=== PATIENT | female | born 1990 | race Caucasian/White ===

== ENCOUNTER 2016-06-15 20:01 | Emergency (ER) | payer MEDICAID, OTHER ==
[2016-06-15 20:16] VITALS: BP 112/71
[2016-06-15] MEDS ORDERED: Acetaminophen TAB* 325 MG PO ONE (20:35)
--- NOTE | 2016-06-15 21:11 | RAD ---
Indication: LEFT foot pain; unable to bear weight or move toes well following injury playing basketball. Lateral ankle and foot swelling. Comparison: July 08, 2003 ankle radiographs. Technique: AP, lateral, and oblique views LEFT foot. Report: Negative for fracture or malalignment. Mild forefoot plantar soft tissue swelling. IMPRESSION: Negative for LEFT foot fracture or malalignment. If there is clinical concern for injury at level of the ankle dedicated radiographs of the ankle would be suggested.
--- NOTE | 2016-06-15 21:27 | ED ---
Lower Extremity - HPI Summary HPI Summary: 26 F presents with left foot pain since today. She was walking when she rolled her foot. She denies any ankle pain. She has not hurt this foot before. She denies any numbness or tingling. She states she is unable to move her toes due to the pain. She has not taken anything for the pain yet. She states she is having difficulty ambulating due to pain - History of Current Complaint Chief Complaint: EDExtremityLower Stated Complaint: LT FOOT PAIN Time Seen by Provider: 06/15/16 20:21 Hx Last Menstrual Period: 2 WKS AGO Pain Intensity: 6 - Allergies/Home Medications Allergies/Adverse Reactions: Allergies Allergy/AdvReac Type Severity Reaction Status Date / Time No Known Allergies Allergy Verified 05/28/16 13:28 PMH/Surg Hx/FS Hx/Imm Hx Endocrine/Hematology History: Denies: Hx Anticoagulant Therapy History: Reports: Other Problems/Disorders - Surgical History Surgery Procedure, Year, and Place: 2 HERNIA REPAIRS Infectious Disease History: Denies: Traveled Outside the [place] in Last 30 Days - Family History Known Family History: Positive: Unknown - Social History Alcohol Use: None Substance Use Type: Reports: None Smoking Status (MU): Current Every Day Smoker Type: Cigarettes Amount Used/How Often: 1/2 PPD Length of Time of Smoking/Using Tobacco: 9 YRS Review of Systems Negative: Fever Negative: Chest Pain Negative: Shortness Of Breath Positive: Myalgia - left foot pain All Other Systems Reviewed And Are Negative: Yes Physical Exam Triage Information Reviewed: Yes Vital Signs On Initial Exam: Initial Vitals Temp Pulse Resp BP Pulse Ox 99.1 F 89 16 112/71 100 06/15/16 20:12 06/15/16 20:12 06/15/16 20:12 06/15/16 20:12 06/15/16 20:12 Vital Signs Reviewed: Yes Appearance: Positive: Well-Appearing Skin: Positive: Warm, Dry Head/Face: Positive: Normal Head/Face Inspection Eyes: Positive: Normal, Conjunctiva Clear ENT: Positive: Normal ENT inspection, Pharynx normal, TMs normal Respiratory/Lung Sounds: Positive: Clear to Auscultation, Breath Sounds Present Cardiovascular: Positive: Normal, RRR Musculoskeletal: Positive: Strength/ROM Intact - of ankle, Limited @ - left toes due to pain, Edema Left - foot, Other - good pulses, capillary refill < 2secs, nontender ankle, tenderness over 1st metatarsal Neurological: Positive: Sensory/Motor Intact Diagnostics - Vital Signs Vital Signs Temp Pulse Resp BP Pulse Ox 06/15/16 20:12 99.1 F 89 16 112/71 100 - Laboratory Lab Statement: Any lab studies that have been ordered have been reviewed, and results considered in the medical decision making process. - Radiology foot Xray Interpretation: No Acute Changes Radiology Interpretation Completed By: Radiologist Lower Extremity Course/Dx - Course Course Of Treatment: 26 F presents with left foot pain s/p rolling her foot today. states pain is greatest over 1st metatarsal with some visible swelling, no ankle tenderness and full ROM of ankle, offered to do ankle xray but patient states pain is not in the ankle and does not want them done, able to move toes but refuses to do so do to pain, xray foot and normal, explained results to patient and that is likely a sprain, will treat conservatively, patient agrees with plan - Diagnoses Differential Diagnosis/HQI/PQRI: Positive: Contusion, Fracture (Closed), Sprain , Strain Provider Diagnoses: Foot pain, left Discharge - Discharge Plan Condition: Good Disposition: HOME Patient Education Materials: Foot Sprain (ED) Referrals: [facility] [place] [facility]IAN REFERRAL [Outside] Additional Instructions: Stay off foot as much as possible Ice, elevate, keep in JOSE Tylenol every 6 hours for pain Follow up with primary if no improvement Return to ED if develop any numbness or tingling or any new or worsening symptoms
== END 2016-06-15 21:38 | disposition home or self-care (01) ==
LOC: ED 20:01
DX: M79.672 Pain in left foot (principal); F17.210 Nicotine dependence, cigarettes, uncomplicated
CPT/HCPCS: 99282; A9270-GY

== ENCOUNTER → 2016-08-22 12:07 | Day surgery (SDC) | payer OTHER ==
[~2016-08-22 12:07] MED LIST: Buffered Lidocaine 1% SYRIN* 3 ML/SYR SYRINGE INTRADERM ONE; Bupivacaine 0.5% SDV PF* 30 ML VIAL ONE; Dexamethasone IV* 4 MG/ML 1 ML (4 MG) ONE; Famotidine IV* 10 MG/ML 2 ML (20 mg) IV ONE; Famotidine IV* 10 MG/ML 2 ML (20 mg) ONE; KETAMINE HCL* 50 MG/ML 10 ML VIAL ONE; Ketorolac INJ* 30 MG/ML 1 ML VIAL ONE; Lidocaine 2% PF* 5 ML VIAL ONE; Midazolam* 1 MG/ML 5 ML VIAL (5 MG) ONE; Morphine INJ* 10 MG/ML 1 ML SYRINGE ONE; Morphine INJ* 2 MG/ML 1 ML SYRINGE IV PRN; Ondansetron INJ* 2 MG/ML VIAL ONE; PROCHLORPERAZINE INJ 5 MG/ML 2 ML VIAL ONE; Propofol* 10 MG/ML 20 ML BTL IV PUSH ONE; Scopolamine 1.5 mg* PATCH ONE; ceFAZolin 2 GM PREMIX(*) 2 GM/50 ML BAG IVPB ONE; fentaNYL* 50 MCG/ML 2 ML VIAL (100 MCG VIAL) ONE; oxyCODONE TAB* 5 MG TAB ONE; oxyCODONE/Acetamin 5/325 MG* TAB PO PRN
[2016-08-22 12:12] LABS: Manual Entry Verification DOM0004; UR Preg Internal Control QC Line Present
[2016-08-22] MEDS: fentaNYL* 50 MCG/ML 2 ML VIAL (100 MCG VIAL) IV PRN ×3 (14:39→14:54)
[2016-08-22] MEDS: PROCHLORPERAZINE INJ 5 MG/ML 2 ML VIAL IV PRN ×2 (14:43→14:51)
--- NOTE | 2016-08-22 15:35 | RAD ---
INDICATION: Left midfoot ORIF, S 92.325D COMPARISONS: August 11, 2016 TECHNIQUE: Fluoroscopy was provided for a surgical procedure. Total fluoroscopy time is: 5 seconds FINDINGS: Spot images demonstrate internal fixation of the first metatarsal and midfoot IMPRESSION: FLUOROSCOPY WAS PROVIDED FOR A SURGICAL PROCEDURE CPT II Codes: 6045F
[2016-08-22 16:51] VITALS: BP 100/65
--- NOTE | 2016-08-23 10:07 | OP ---
OPERATIVE REPORT: DATE OF OPERATION: 08/22/16 DATE OF : 86 SURGEON: Godfrey Garcia MD VISUAL COORDINATOR: Ela Parr PA-C. PRE-OP DIAGNOSIS: Lisfranc fracture dislocation or subluxation, left midfoot, 9- week duration. POST-OP DIAGNOSIS: Lisfranc fracture dislocation or subluxation, left midfoot, 9- week duration. OPERATIVE PROCEDURE: Internal fixation of the first and second columns, left midfoot. DESCRIPTION OF PROCEDURE: The patient was taken to the operating room where a longitudinal incision was made over the dorsum of the first metatarsal cuneiform axis. We then reflected dorsally and la terally over the shaft of the second metatarsal with laminar branch operation evaluation manager between the first and second m etatarsals. I cleaned out any of the osseous or fibrous debris, and then used a pointed reduction c lamp to bring the second metatarsal firmly over against the first cuneiform. At this point, I fashi oned a 5-hole one-third tibial plate to fit the medial straight axis of the first metatarsal cuneifo rm. This was fixed sequentially with cortical screws, 2 of these passing over into the second metat arsal base. X-rays intraoperatively showed sabianism of the medial straight border of the column as well as bringing the second metatarsal firmly over to the first. Irrigation followed with Vicryl and nylon, and a compression dressing and plaster splint applied. [id number]/[facility] #: [id number]
== END | disposition home or self-care (01) ==
LOC: OR 12:07
PROVIDERS: ATTEND Orthopaedic Surgery
DX: S92.325D Nondisplaced fracture of second metatarsal bone, left foot, subsequent encounter for fracture with routine healing (principal); S92.202D Fracture of unspecified tarsal bone(s) of left foot, subsequent encounter for fracture with routine healing; F17.200 Nicotine dependence, unspecified, uncomplicated; X58.XXXA Exposure to other specified factors, initial encounter; D64.9 Anemia, unspecified; F41.9 Anxiety disorder, unspecified
CPT/HCPCS: 76000; 81025; A9270-GY; J0690; J0780; J1100; J1885; J2250; J2270; J2405; J2704; J3010

== ENCOUNTER → 2016-08-24 16:13 | Emergency (ER) | payer OTHER ==
[~2016-08-24 16:13] MED LIST changes: +Acetaminophen TAB* 325 MG PO ONE; +Aspirin TAB* 325 MG PO ONE; -Buffered Lidocaine 1% SYRIN* 3 ML/SYR SYRINGE INTRADERM ONE; -Bupivacaine 0.5% SDV PF* 30 ML VIAL ONE; -Dexamethasone IV* 4 MG/ML 1 ML (4 MG) ONE; -Famotidine IV* 10 MG/ML 2 ML (20 mg) IV ONE; -Famotidine IV* 10 MG/ML 2 ML (20 mg) ONE; -KETAMINE HCL* 50 MG/ML 10 ML VIAL ONE; -Ketorolac INJ* 30 MG/ML 1 ML VIAL ONE; -Lidocaine 2% PF* 5 ML VIAL ONE; -Midazolam* 1 MG/ML 5 ML VIAL (5 MG) ONE; -Morphine INJ* 10 MG/ML 1 ML SYRINGE ONE; -Morphine INJ* 2 MG/ML 1 ML SYRINGE IV PRN; -Ondansetron INJ* 2 MG/ML VIAL ONE; -PROCHLORPERAZINE INJ 5 MG/ML 2 ML VIAL ONE; -Propofol* 10 MG/ML 20 ML BTL IV PUSH ONE; -Scopolamine 1.5 mg* PATCH ONE; -ceFAZolin 2 GM PREMIX(*) 2 GM/50 ML BAG IVPB ONE; -fentaNYL* 50 MCG/ML 2 ML VIAL (100 MCG VIAL) ONE; -oxyCODONE TAB* 5 MG TAB ONE; -oxyCODONE/Acetamin 5/325 MG* TAB PO PRN
[2016-08-24 16:23] VITALS: BP 125/74
--- NOTE | 2016-08-24 17:10 | ED ---
Throat Pain/Nasal Congestion - HPI Summary HPI Summary: 26F presents with right eye dilation today. Denies any medication or trauma to the eye. She states that at 12:30pm today she noticed a funny feeling in her right eye. She looked in the mirror and noticed that it was dilated. She states that her vision is blurry when she tries to read something up close. She also admits to numbness on the left side of her face. She denies any ithcy or water eyes. She denies feeling like something scratched her eyes. She states that she wears contacts and she currently has contacts in her eye. She states that she had surgery on Monday for her left ankle and that she has been taking zofran and pain medication for her ankle. - History of Current Complaint Chief Complaint: EDEyeProblem Time Seen by Provider: 08/24/16 16:32 - Allergies/Home Medications Allergies/Adverse Reactions: Allergies Allergy/AdvReac Type Severity Reaction Status Date / Time No Known Allergies Allergy Verified 08/24/16 16:21 PMH/Surg Hx/FS Hx/Imm Hx Endocrine/Hematology History: Reports: Hx Anemia - HX OF ANEMIA, OK NOW Denies: Hx Anticoagulant Therapy, Hx Diabetes Cardiovascular History: Denies: Hx Hypertension, Hx Pacemaker/ICD GI History: Reports: Other GI Disorders - UMBILICAL HERNIA REPAIR X 2 IN 1999 History: Reports: Hx Kidney Stones - 09/2015 LITHOTRIPSY Denies: Other Problems/Disorders - HX OF STREP INFECTION- KIDNEYS Musculoskeletal History: Reports: Other Musculoskeletal History - 2 MONTH HX OF LEFT MIDFOOT INJURY/FRACTURE Sensory History: Reports: Hx Contacts or Glasses Denies: Hx Hearing Aid Opthamlomology History: Reports: Hx Contacts or Glasses Psychiatric History: Reports: Hx Anxiety - MILD ANXIETY, TAKES NO MEDS Denies: Hx Panic Disorder - Surgical History Surgery Procedure, Year, and Place: UMBILICAL HERNIA REPAIR X 2 1999. LITHOTRIPSY 09/2015 [facility] Hx Anesthesia Reactions: No Infectious Disease History: No Infectious Disease History: Denies: Traveled Outside the [place] in Last 30 Days - Family History Known Family History: Positive: Unknown - Social History Alcohol Use: Occasionally Alcohol Amount: 1 DRINK/MONTH- SOCIALLY Substance Use Type: Reports: None Smoking Status (MU): Light Every Day Tobacco Smoker Type: Cigarettes Amount Used/How Often: 1/2 PPD FOR 9 YRS Length of Time of Smoking/Using Tobacco: 9 YRS Have You Smoked in the Last Year: No Review of Systems Negative: Fever Positive: Blurred Vision, Other - aniscoria Negative: Chest Pain Negative: Shortness Of Breath Positive: Numbness - left facial. Negative: Weakness All Other Systems Reviewed And Are Negative: Yes Physical Exam Triage Information Reviewed: Yes Vital Signs On Initial Exam: Initial Vitals Temp Pulse Resp BP Pulse Ox 98.2 F 80 16 125/74 100 08/24/16 16:21 08/24/16 16:21 08/24/16 16:21 08/24/16 16:21 08/24/16 16:21 Vital Signs Reviewed: Yes Appearance: Positive: Well-Appearing Skin: Positive: Warm, Dry Head/Face: Positive: Normal Head/Face Inspection Eyes: Positive: EOMI, Conjunctiva Clear, Other: - 1cm dilated right eye minimal reactivity with normal reactive left eye ENT: Positive: Normal ENT inspection, Pharynx normal, TMs normal Respiratory/Lung Sounds: Positive: Clear to Auscultation, Breath Sounds Present Cardiovascular: Positive: Normal, RRR Neurological: Positive: Sensory/Motor Intact, Alert, Oriented to Person Place, Time, Other - diminished sensation on left side face, tongue midline, smile symmetrical - Angela Coma Scale Coma Scale Total: 15 Diagnostics - Vital Signs Vital Signs Temp Pulse Resp BP Pulse Ox 08/24/16 16:21 98.2 F 80 16 125/74 100 - Laboratory Lab Statement: Any lab studies that have been ordered have been reviewed, and results considered in the medical decision making process. - CT brain CT Interpretation: No Acute Changes CT Interpretation Completed By: Radiologist EENT Course/Dx - Course Course Of Treatment: 26F presents with aniscoria of right eye today. had surgery on monday for ankle. denies any trauma to eye or drug use. denies any history of neurologic symptoms. admits to vision loss in right eye and numbness on left side of face. neuro exam normal expect for dilated pupil of right eye that is minimial reactive and dismissed sensation on left side of face. this does not appear to be a steven syndrome. CT brain normal. patient seen with dr paredes who performed slit lamp. since no optho coverage will transfer. patient refused ambulance transfer signed out AMA against ambulance but will have mom drive her to [facility]. - Differential Diagnoses Differential Diagnoses: Corneal Abrasion, Glaucoma, Other - CN3 palsy, retinal artery occulsion - Diagnoses Provider Diagnoses: Visual loss, Facial numbness, Mydriasis, Acute loss of vision Discharge - Discharge Plan Condition: Good Disposition: AGAINST MEDICAL ADVICE Referrals: No Primary Care Phys,NOPCP [Primary Care Provider] -
--- NOTE | 2016-08-24 17:41 | RAD ---
HISTORY: Anisocoria, blurry vision, dizziness COMPARISONS: None TECHNIQUE: Multiple contiguous axial CT scans were obtained of the head without intravenous contrast. FINDINGS: HEMORRHAGE/INFARCT: There is no hemorrhage or acute infarct. MASSES/SHIFT: There is no mass or shift. EXTRA-AXIAL SPACES: There are no extra-axial fluid collections. SULCI AND VENTRICLES: The sulci and ventricles are normal in size and position for the patient's stated age. CEREBRUM: There are no focal parenchymal abnormalities. BRAINSTEM: There are no focal parenchymal abnormalities. CEREBELLUM: There are no focal parenchymal abnormalities. VESSELS: The vessels are grossly normal. PARANASAL SINUSES: The paranasal sinuses are clear. ORBITS: The orbits are unremarkable. BONES AND SOFT TISSUE: No bone or soft tissue abnormalities are noted. OTHER: None IMPRESSION: NO ACUTE INTRACRANIAL PATHOLOGY.
--- NOTE | 2016-08-24 18:58 | ED ---
Melvin Galo Adam, scribed for Wallace Dennison MD on 08/24/16 at 1700 . Progress - Progress Note Progress Note: This patient is being seen by Xenia Kligore (ADELSO). Pt states that her right eye began "feeling really funny" at 12:30 today and then she noticed that her pupil was enlarged. She states that her vision is blurry as well. She denies using any eye drops. She is wearing contact lenses. She also c/o dizziness, nausea, NUNN (resolved now), and numbness on one side of her face. She has been having intermittent burning during urination recently. She denies any recent head injury or trauma. Pt has taken Rx oxycodone, Zofran, and Tylenol today. She expects to have her MP within the next week. Negative FMHx of blood clots or CVA. BRAIN CT - IMPRESSION: NO ACUTE INTRACRANIAL PATHOLOGY PHYSICAL EXAM: Constitutional: Well-developed, Well-nourished, Alert. (-) Distressed Skin: Warm, Dry HENT: Normal Eyes: Slit lamp exam negative. Right eye has unreactive mydriatic pupil, 10 mm. Optic disc appears to be sharp. There is a very discrete area of maroon smudging from the temporal to the optic disc, unclear significance. No papilledema. We removed the contact lens for the exam. Mild improvement in vision after contact lens removed. Neck: Musculoskeletal ROM normal neck. (-) JVD, (-) Stridor, (-) Tracheal deviation Cardio: Rhythm regular, rate normal, Heart sounds normal; Intact distal pulses; The pedal pulses are 2+ and symmetric. Radial pulses are 2+ and symmetric. (-) Murmur Pulmonary/Chest wall: Effort normal. (-) Respiratory distress, (-) Wheezes, (-) Rales Abd: Soft. (-) Tenderness, (-) Distension, (-) Guarding, (-) Rebound Musculoskeletal: (-) Edema Lymph: (-) Cervical adenopathy Neuro: Diminished sensation on left side of face. Alert, Oriented x3, Strength normal, (-) Dysmetria, (-) Ataxia by finger to nose testing, (-) Psych: Mood and affect Normal COURSE: Unclear given pt's hx of smoking if this is a neurologic event vs an ocular event. She is sent to [facility] for optho and neuro consult. We are administering ASA in the event that this is an acute CVA or retinal artery occlusion. 18:40 - Discussed care of patient with Dr. Ellis at the transfer center at [facility]. Patient will be transferred to ophthalmology for acute visual loss. Course/Dx - Diagnoses Provider Diagnoses: Visual loss, Facial numbness, Mydriasis, Acute loss of vision The documentation as recorded by the Melvin ward Adam accurately reflects the service I personally performed and the decisions made by , Wallace Dennison MD.
== END | disposition left against medical advice (07) ==
LOC: ED 16:13
DX: H54.7 Unspecified visual loss (principal); H57.04 Mydriasis; R20.0 Anesthesia of skin
CPT/HCPCS: 70450; 99282

== ENCOUNTER 2016-12-26 06:11 | Day surgery (SDC) | payer OTHER ==
--- NOTE | 2016-12-22 20:40 | HP ---
PREOPERATIVE HISTORY AND PHYSICAL: DATE OF ADMISSION/SURGERY: 12/26/16 DATE OF OFFICE VISIT: 12/20/16 ATTENDING SURGEON: Dr. Garcia * (DICTATED BY ADELSO GARZA) PROCEDURE: Left midfoot removal of plate. CHIEF COMPLAINT: Left foot retained hardware. HISTORY OF PRESENT ILLNESS: Miracle is a 26-year-old female who is status post left midfoot Lisfranc fracture, status post ORIF. She has been doing well. The fracture has been well healed and she would like to have the hardware removed and would like to proceed with the surgery. This is scheduled for 12/26/[address] Garcia. PAST MEDICAL HISTORY: None. PAST SURGICAL HISTORY: 1. Left midfoot Lisfranc fixation. 2. Umbilical hernia x2. MEDICATIONS: None. ALLERGIES: No known drug allergies. FAMILY HISTORY: Diabetes mellitus, heart disease, and cancer. SOCIAL HISTORY: She works at [employer]. She quit smoking a month and a half ago. Rarely uses alcohol and denies recreational drug use. REVIEW OF SYSTEMS: General: Negative for fevers, chills, or night sweats. No known anesthesia problems. HEENT: Negative for headaches, lightheadedness, or syncopal episodes. Integumentary: Negative for abrasions, lesions, or open wounds. Cardiothoracic: Negative for chest pain, palpitations, or edema. Negative for hypertension. Pulmonary: Negative for shortness of breath with exertion, chronic cough, COPD. GI: Negative for nausea, vomiting, diarrhea, constipation, or GERD. : Positive for post-strep glomerulonephritis. Negative for nocturia, urinary frequency, urinary urgency, history of UTIs. Musculoskeletal: Positive for current complaint. Negative for chronic or intermittent back pain or fractures. Neuro: Negative for paresthesias, numbness, history of seizure, stroke, or epilepsy. Endocrine: Negative for diabetes, thyroid issues. Hematologic: Negative for easy bruising, anemia, excessive bleeding, or history of DVT. ID: Negative for history of MRSA, hep C , or HIV. PHYSICAL EXAMINATION GENERAL: Well-developed, well-nourished, 26-year-old female, in no acute distress. VITAL SIGNS: Blood pressure is 108/62, respirations 16, temperature is 98.6, pulse of 76, weight 125 pounds, BMI of 22.1. HEENT: Normocephalic/atraumatic. NECK: Supple with no palpable lymph nodes. PULMONARY: Lungs clear to auscultation bilaterally. No wheezes, rales, or rhonchi. CARDIO: Regular rate and rhythm. S1, S2. No murmurs, rubs, or gallops. No edema. ABDOMEN: Positive bowel sounds, soft, nontender. NEUROLOGIC: Alert and oriented x3. Cranial nerves II through XII grossly intact. Sensation intact to light touch. MUSCULOSKELETAL: There is some slight inflammation or irritation at the medial border of the first metatarsal . This corresponds exactly to the location of the plate. Alignment of her midfoot is excellent. There is no erythema or swelling. Dorsalis pedis pulses are 2+. DIAGNOSTIC STUDIES: Last set of x-rays were obtained on 11/11/16, showed status post left midfoot ORIF. There is periprosthetic lucency with mild retraction of the second and third most proximal screws consistent with loosening. IMPRESSION: Retained left midfoot hardware. PLAN: The patient is scheduled to undergo hardware removal with Dr. Garcia on 12/26/16. She will return to the office in 10 to 14 days postop for followup and suture removal. A prescription for Percocet was e-prescribed to the patient 's pharmacy for postoperative pain management. ADELSO GARZA [id number]/[facility] #: [id number] MTDValdemar
[~2016-12-26 06:11] MED LIST changes: -Acetaminophen TAB* 325 MG PO ONE; -Aspirin TAB* 325 MG PO ONE; +Buffered Lidocaine 0.9% SYRIN* 5 ML/SYR SYRINGE INTRADERM ONE; +Dexamethasone IV* 4 MG/ML 1 ML (4 MG) IV SLOW PU ONE; +Famotidine IV* 10 MG/ML 2 ML (20 mg) IV ONE
[2016-12-26] MEDS ORDERED: Buffered Lidocaine 0.9% SYRIN* 5 ML/SYR SYRINGE ONE (06:22)
[2016-12-26] MEDS ORDERED: Famotidine IV* 10 MG/ML 2 ML (20 mg) ONE (06:22)
[2016-12-26] MEDS ORDERED: Dexamethasone IV* 4 MG/ML 1 ML (4 MG) ONE (06:22)
[2016-12-26] MEDS ORDERED: ceFAZolin 2 GM PREMIX(*) 2 GM/50 ML BAG IVPB ONE (06:22)
[2016-12-26] MEDS ORDERED: PROCHLORPERAZINE INJ 5 MG/ML 2 ML VIAL IV PRN (07:13)
[2016-12-26] MEDS ORDERED: HYDROcodone/ACETAMIN 5-325 MG* 1 TAB PO PRN (07:13)
[2016-12-26] MEDS ORDERED: oxyCODONE/Acetamin 5/325 MG* TAB PO PRN (07:13)
[2016-12-26] MEDS ORDERED: fentaNYL* 50 MCG/ML 2 ML VIAL (100 MCG VIAL) IV PRN (07:13)
[2016-12-26] MEDS ORDERED: Propofol* 10 MG/ML 20 ML BTL IV PUSH ONE (07:17)
[2016-12-26] MEDS ORDERED: Bupivacaine 0.5% SDV PF* 30 ML VIAL ONE (07:17)
[2016-12-26] MEDS ORDERED: Lidocaine 2% PF * 5 ML VIAL ONE (07:17)
[2016-12-26] MEDS ORDERED: fentaNYL* 50 MCG/ML 2 ML VIAL (100 MCG VIAL) ONE ×2 (07:18→07:41)
[2016-12-26] MEDS ORDERED: Ketorolac INJ* 30 MG/ML 1 ML VIAL ONE (07:19)
[2016-12-26] MEDS ORDERED: Ondansetron INJ* 2 MG/ML VIAL ONE (07:47)
[2016-12-26] MEDS ORDERED: HYDROcodone/ACETAMIN 5-325 MG* 1 TAB ONE (08:54)
[2016-12-26] MEDS ORDERED: PROCHLORPERAZINE INJ 5 MG/ML 2 ML VIAL ONE (08:54)
[2016-12-26 09:18] VITALS: BP 106/77
--- NOTE | 2016-12-27 13:43 | OP ---
DATE OF OPERATION: 12/26/16 - [facility] DATE OF : [birth year] SURGEON: Godfrey Garcia MD DIRECTOR OF PEDIATRIC REHABILITATION: Ela Parr PA-C ANESTHESIOLOGIST: Adams Contreras MD ANESTHESIA: General PRE-OP DIAGNOSIS: Painful left midfoot hardware. POST-OP DIAGNOSIS: Painful left midfoot hardware. OPERATIVE PROCEDURE: Removal of hardware, left midfoot. DESCRIPTION OF PROCEDURE: Patient was taken to the operating room where a 4-cm longitudinal incision was made over the medial midfoot. The small fragment screws were identified and removed with appropriate screwdriver as well as one- third tubular plate. I then irrigated thoroughly, closing with 2-0 Vicryl and 3 -0 nylon. [id number]/[facility] #: [id number] MTDD
== END 2016-12-26 09:20 | disposition home or self-care (01) ==
LOC: OR 06:11
PROVIDERS: ATTEND Orthopaedic Surgery
DX: T84.84XA Pain due to internal orthopedic prosthetic devices, implants and grafts, initial encounter (principal); S92.312 Displaced fracture of first metatarsal bone, left foot; Y83.1 Surgical operation with implant of artificial internal device as the cause of abnormal reaction of the patient, or of later complication, without mention of misadventure at the time of the procedure; Z87.891 Personal history of nicotine dependence
CPT/HCPCS: 88300; J0690; J0780; J1100; J1885; J2405; J2704; J3010

== ENCOUNTER → 2018-09-24 07:26 | Day surgery (SDC) | payer OTHER ==
[~2018-09-24 07:26] MED LIST changes: -Buffered Lidocaine 0.9% SYRIN* 5 ML/SYR SYRINGE INTRADERM ONE; +Buffered Lidocaine 1% SYRIN* 1 ML/SYRINGE INTRADERM ONE; +Bupivacaine 0.5%* 50 ML VIAL ONE; -Dexamethasone IV* 4 MG/ML 1 ML (4 MG) IV SLOW PU ONE; +Dexamethasone IV* 4 MG/ML 1 ML (4 MG) ONE; +DiMENhydriNATE IV* 50 MG/ML VIAL IV PUSH PRN; +DiMENhydriNATE IV* 50 MG/ML VIAL ONE; +Famotidine IV* 10 MG/ML 2 ML (20 mg) ONE; +HYDROcodone/ACETAMIN 5-325 MG* 1 TAB PO PRN; +HYDROmorphone INJ1* 1 MG/ML SYRINGE IV PRN; +HYDROmorphone INJ1* 1 MG/ML SYRINGE ONE; +Ketorolac INJ* 30 MG/ML 1 ML VIAL ONE; +Lactated Ringers 1000 ML Bag* 1,000 ML IV SCH; +Lidocaine 1%* 5 ML VIAL ONE; +Lidocaine 2% PF * 5 ML VIAL ONE; +Midazolam* 1 MG/ML 5 ML VIAL (5 MG) ONE; +Naloxone* 0.4 MG/ML 1 ML VIAL IV PRN; +Ondansetron INJ* 2 MG/ML VIAL ONE; +Propofol* 10 MG/ML 20 ML BTL ONE; +ROPIVACAINE 5 MG/ML 30 ML BTL (0.5%) ONE; +ceFAZolin 2 GM PREMIX in ORs 2 GM/50 ML BAG IVPB ONE; +fentaNYL* 50 MCG/ML 2 ML VIAL (100 MCG VIAL) ONE
[2018-09-24 13:34] VITALS: BP 103/64
--- NOTE | 2018-09-24 20:38 | OP ---
DATE OF OPERATION: 09/24/18 - [facility] DATE OF : [birth year] SURGEON: Godfrey Garcia MD VICE PRESIDENT EDUCATION: ADELSO Alvares PRE-OP DIAGNOSIS: Left transmetatarsal joint arthritis. POST-OP DIAGNOSIS: Left transmetatarsal joint arthritis. OPERATIVE PROCEDURE: Left first and second TMT joint fusions with tibial bone graft. DESCRIPTION OF PROCEDURE: The patient was taken to the operating room where a longitudinal incision was made through the previous medial scar. We excised the cicatrix from this previous incision. We then dissected dorsally over the second TMT joint, exposing both first and second TMT joint subperiosteally using the 15 blade and a small [place] elevator. We also opened up between the first and second columns to expose the space between the first and second metatarsals, first and second cuneiform. These areas then were prepared for arthrodesis using a small power milton. The Ankushermann retractor was used to assist with this. Proximally at Gerdy's tubercle, a 3 cm incision was made. We incised through the iliotibial band and a corticotomy performed laterally proximally where we harvested cancellous bone with a medium sized curette. We then replaced the loss of bone with some allograft chips, closing the periosteum with 2-0 Vicryl, 3-0 Monocryl for the skin and subcu. This autograft cancellous bone then was placed between the first and second columns, which would be the first and second metatarsal base, first and second cuneiform as well as the first TMT joint. Fixation consisted of lag screws placed with the small pointed reduction clamp giving compression between the first cuneiform second metatarsal base, first and second cuneiform and then 2 paired screws across the first TMT joint. X-rays intraoperatively showed satisfactory position and alignment of all the hardware. We then irrigated the foot wound, closing with 3 -0 Monocryl and 4-0 nylon for the skin. A compression dressing and plaster splint applied. [id number]/[facility] #: [id number] [facility]
== END | disposition home or self-care (01) ==
LOC: OR 07:26
PROVIDERS: ATTEND Orthopaedic Surgery
DX: M19.172 Post-traumatic osteoarthritis, left ankle and foot (principal); Z87.81 Personal history of (healed) traumatic fracture; Z72.0 Tobacco use
CPT/HCPCS: 76000; 81025; C1713; C1776; C9359; J0690; J1100; J1170; J1240; J1885; J2250; J2405; J2704; J2795; J3010; J3490

== ENCOUNTER 2019-07-08 08:13 | Day surgery (SDC) | payer OTHER ==
[~2019-07-08 08:13] MED LIST changes: -Bupivacaine 0.5%* 50 ML VIAL ONE; -Dexamethasone IV* 4 MG/ML 1 ML (4 MG) ONE; -DiMENhydriNATE IV* 50 MG/ML VIAL IV PUSH PRN; -DiMENhydriNATE IV* 50 MG/ML VIAL ONE; -Famotidine IV* 10 MG/ML 2 ML (20 mg) IV ONE; -Famotidine IV* 10 MG/ML 2 ML (20 mg) ONE; -HYDROcodone/ACETAMIN 5-325 MG* 1 TAB PO PRN; -HYDROmorphone INJ1* 1 MG/ML SYRINGE IV PRN; -HYDROmorphone INJ1* 1 MG/ML SYRINGE ONE; -Ketorolac INJ* 30 MG/ML 1 ML VIAL ONE; -Lidocaine 1%* 5 ML VIAL ONE; -Lidocaine 2% PF * 5 ML VIAL ONE; -Midazolam* 1 MG/ML 5 ML VIAL (5 MG) ONE; -Naloxone* 0.4 MG/ML 1 ML VIAL IV PRN; -Ondansetron INJ* 2 MG/ML VIAL ONE; -Propofol* 10 MG/ML 20 ML BTL ONE; -ROPIVACAINE 5 MG/ML 30 ML BTL (0.5%) ONE; -ceFAZolin 2 GM PREMIX in ORs 2 GM/50 ML BAG IVPB ONE; +ceFAZolin 2 GM PREMIX in ORs 2 GM/50 ML BAG ONE; -fentaNYL* 50 MCG/ML 2 ML VIAL (100 MCG VIAL) ONE
[2019-07-08] MEDS ORDERED: Midazolam* 1 MG/ML 2 ML VIAL (2 MG) ONE (08:14)
[2019-07-08] MEDS ORDERED: fentaNYL* 50 MCG/ML 2 ML VIAL (100 MCG VIAL) ONE (08:14)
[2019-07-08] MEDS ORDERED: Bupivacaine 0.5%* 50 ML MDV VIAL ONE (08:48)
[2019-07-08] MEDS ORDERED: Naloxone* 0.4 MG/ML 1 ML VIAL IV PRN (08:50)
[2019-07-08] MEDS ORDERED: Propofol* 10 MG/ML 20 ML BTL ONE (10:20)
[2019-07-08] MEDS ORDERED: Ondansetron INJ* 2 MG/ML VIAL ONE (10:20)
[2019-07-08] MEDS ORDERED: Dexamethasone IV* 4 MG/ML 1 ML (4 MG) ONE (10:20)
[2019-07-08] MEDS ORDERED: Lidocaine 2% PF * 5 ML VIAL ONE (10:20)
[2019-07-08] MEDS ORDERED: Ketorolac INJ* 30 MG/ML 1 ML VIAL ONE (10:24)
[2019-07-08] MEDS ORDERED: HYDROmorphone INJ1* 1 MG/ML SYRINGE ONE (10:47)
[2019-07-08] MEDS: HYDROmorphone INJ1* 1 MG/ML SYRINGE IV PRN ×3 (10:48→11:23)
[2019-07-08 11:34] VITALS: BP 104/71
--- NOTE | 2019-07-09 04:02 | OP ---
DATE OF OPERATION: 07/08/19 - [facility] DATE OF : 86 SURGEON: Godfrey Garcia MD. SERVER PROGRAMMER: ADELSO Hoover. PRE-OP DIAGNOSIS: Painful hardware, left mid foot. POST-OP DIAGNOSIS: Painful hardware, left mid foot. OPERATIVE PROCEDURES: Removal of hardware, left mid foot. DESCRIPTION OF PROCEDURE: The patient was taken to the operating where a longitudinal incision was made over the dorsomedial left foot. Incision was taken down to the metatarsal itself with the dorsal flap raised and a star screw -fork truck driver used to remove the 2 longitudinal screws. More proximal to this, on the dorsomedial aspect of the first cuneiform, the other 2 small fragment screws were removed. We then irrigated the wound thoroughly closing with nylon for the skin and a compression dressing. [id number]/[facility] #: [id number] MTDValdemar
== END 2019-07-08 11:30 | disposition home or self-care (01) ==
LOC: OR 08:13
PROVIDERS: ATTEND Orthopaedic Surgery
DX: T84.84XA Pain due to internal orthopedic prosthetic devices, implants and grafts, initial encounter (principal); Y83.1 Surgical operation with implant of artificial internal device as the cause of abnormal reaction of the patient, or of later complication, without mention of misadventure at the time of the procedure; M19.072 Primary osteoarthritis, left ankle and foot; F17.210 Nicotine dependence, cigarettes, uncomplicated; F41.9 Anxiety disorder, unspecified
CPT/HCPCS: 81025; 88300; J0690; J1100; J1170; J1885; J2250; J2405; J2704; J3010; J3490